=== PATIENT | female | born 1995 | race Caucasian/White ===

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

== ENCOUNTER 2017-02-08 22:05 | Emergency (ER) | payer OTHER ==
[2017-02-08 23:31] LABS: Hematocrit 37 % (35-47); Hemoglobin 12.7 g/dl (12.0-16.0); Mean Corpuscular HGB Conc 34 g/dl (31-36); Mean Corpuscular Hemoglobin 30 pg (27-31); Mean Corpuscular Volume 88 fL (80-97); Mean Platelet Volume 7 um3 (7.4-10.4); Red Blood Count 4.27 10^6/ul (4.0-5.4); Red Cell Distribution Width 13 % (10.5-15); White Blood Count 10.5 10^3/ul (3.5-10.8)
[2017-02-08 23:46] LABS: ALT 15 U/L (7-52); AST 22 U/L (13-39); Albumin 5.1 g/dL (3.2-5.2); Alkaline Phosphatase 49 U/L (34-104); Anion Gap 10 mmol/L (2-11); Blood Urea Nitrogen 13 mg/dL (6-24); CO2 Carbon Dioxide 24 mmol/L (22-32); Calcium 9.4 mg/dL (8.6-10.3); Chloride 104 mmol/L (101-111); EGFR African American 149.4 (>60); EGFR Non-African American 116.2 (>60); Globulin 3.1 g/dL (2-4); Glucose 98 mg/dL (70-100); Potassium 4.3 mmol/L (3.5-5.0); Sodium 138 mmol/L (133-145); Total Protein 8.2 g/dL (6.4-8.9)
[2017-02-08 23:47] LABS: Acetaminophen < 15 mcg/mL; Alcohol 231 mg/dL (<10); Salicylate < 2.50 mg/dL (<30)
[2017-02-08 23:57] LABS: TSH (Thyroid Stimulating Horm) 1.17 mcIU/mL (0.34-5.60)
[2017-02-09 02:22] VITALS: BP 106/64
--- NOTE | 2017-02-09 02:23 | ED ---
Substance Abuse/Use - HPI Summary HPI Summary: Patient presents to the ED with ETOH intoxication. Brought in by friends. She notes to vomiting 6x. She states she had 5-6 mixed drinks, but has drank that much in the past, per patient, without problems. Currently family member at bedside. She states to feeling fine and was in the waiting room for over 2 hours. She is taking PO well and denies nausea. Denies falling, hitting her head or any pain. Denies health problems, lives with friends, takes no medications. - History Of Current Complaint Chief Complaint: EDSubstanceAbuse Stated Complaint: ETOH Time Seen by Provider: 02/09/17 01:05 Hx Obtained From: Patient Hx Last Menstrual Period: 04/11/15 ?: No Onset/Duration of Drug/ETOH Abuse: Hours Ingestion History: Amount Ingested - 6 Overdose Characteristics: Oral Timing Of Abuse: Intermittent Severity Initially: Moderate Severity Currently: Mild Character: Stuporous Aggravating Factor(s): Nothing Alleviating Factor(s): Nothing Associated Signs And Symptoms: Nausea, Vomiting - Risk Factor(s) Completed Suicide Risk Factors: Negative - Allergies/Home Medications Allergies/Adverse Reactions: Allergies Allergy/AdvReac Type Severity Reaction Status Date / Time No Known Allergies Allergy Verified 02/08/17 22:27 PMH/Surg Hx/FS Hx/Imm Hx Previously Healthy: Yes Musculoskeletal History: Denies: Hx Osteoporosis Neurological History: Reports: Other Neuro Impairments/Disorders - T5 COMPRESSION FX IN APR 2013 - Surgical History Surgery Procedure, Year, and Place: Negative - Immunization History Hx Pertussis Vaccination: No Immunizations Up to Date: Unable to Obtain/Confirm Infectious Disease History: No Infectious Disease History: Denies: History Other Infectious Disease, Traveled Outside the [place] in Last 30 Days - Family History Known Family History: Positive: None - Patient denies - Social History Occupation: Unemployed Lives: With Family Alcohol Use: Weekly Alcohol Amount: On the weekends Hx Substance Use: No Substance Use Type: Reports: None Hx Tobacco Use: No Smoking Status (MU): Never Smoked Tobacco Review of Systems Constitutional: Negative Negative: Fever, Chills, Fatigue Eyes: Negative Negative: Blurred Vision, Diplopia, Drainage Cardiovascular: Negative Negative: Chest Pain Respiratory: Negative Negative: Shortness Of Breath, Cough Positive: no symptoms reported, see HPI Negative: Arthralgia, Myalgia Skin: Negative Negative: Headache Psychological: Normal All Other Systems Reviewed And Are Negative: Yes Physical Exam Triage Information Reviewed: Yes Vital Signs On Initial Exam: Initial Vitals Temp Pulse Resp BP Pulse Ox 97.3 F 88 16 111/70 99 02/08/17 22:28 02/08/17 22:28 02/08/17 22:28 02/08/17 22:28 02/08/17 22:28 Vital Signs Reviewed: Yes Appearance: Positive: Well-Appearing, Well-Nourished Skin: Positive: Warm, Skin Color Reflects Adequate Perfusion Head/Face: Positive: Normal Head/Face Inspection Eyes: Positive: EOMI, JOSÉ MANUEL, Conjunctiva Clear Neck: Positive: Supple, Nontender Respiratory/Lung Sounds: Positive: Clear to Auscultation, Breath Sounds Present Cardiovascular: Positive: Normal, RRR, Pulses are Symmetrical in both Upper and Lower Extremities Abdomen Description: Positive: Nontender, Soft Bowel Sounds: Positive: Present Musculoskeletal: Positive: Normal, Strength/ROM Intact Neurological: Positive: Speech Normal Psychiatric: Positive: Normal - Damon Coma Scale Coma Scale Total: 15 Diagnostics - Vital Signs Vital Signs Temp Pulse Resp BP Pulse Ox 02/08/17 22:28 97.3 F 88 16 111/70 99 - Laboratory Lab Results: Lab Results 02/08/17 02/08/17 Range/Units 23:05 23:05 WBC 10.5 (3.5-10.8) 10^3/ul RBC 4.27 (4.0-5.4) 10^6/ul Hgb 12.7 (12.0-16.0) g/dl Hct 37 (35-47) % MCV 88 (80-97) fL MCH 30 (27-31) pg MCHC 34 (31-36) g/dl RDW 13 (10.5-15) % Plt Count 376 (150-450) 10^3/ul MPV 7 L (7.4-10.4) um3 Neut % (Auto) 67.4 (38-83) % Lymph % (Auto) 26.8 (25-47) % Granite % (Auto) 4.5 (1-9) % Eos % (Auto) 0.9 (0-6) % Baso % (Auto) 0.4 (0-2) % Absolute Neuts (auto) 7.1 (1.5-7.7) 10^3/ul Absolute Lymphs (auto) 2.8 (1.0-4.8) 10^3/ul Absolute Monos (auto) 0.5 (0-0.8) 10^3/ul Absolute Eos (auto) 0.1 (0-0.6) 10^3/ul Absolute Basos (auto) 0 (0-0.2) 10^3/ul Absolute Nucleated RBC 0 10^3/ul Nucleated RBC % 0 Sodium 138 (133-145) mmol/L Potassium 4.3 (3.5-5.0) mmol/L Chloride 104 (101-111) mmol/L Carbon Dioxide 24 (22-32) mmol/L Anion Gap 10 (2-11) mmol/L BUN 13 (6-24) mg/dL Creatinine 0.65 (0.51-0.95) mg/dL Est GFR ( Amer) 149.4 (>60) Est GFR (Non-Af Amer) 116.2 (>60) BUN/Creatinine Ratio 20.0 (8-20) Glucose 98 (70-100) mg/dL Calcium 9.4 (8.6-10.3) mg/dL Total Bilirubin 0.30 (0.2-1.0) mg/dL AST 22 (13-39) U/L ALT 15 (7-52) U/L Alkaline Phosphatase 49 (34-104) U/L Total Protein 8.2 (6.4-8.9) g/dL Albumin 5.1 (3.2-5.2) g/dL Globulin 3.1 (2-4) g/dL Albumin/Globulin Ratio 1.6 (1-3) TSH 1.17 (0.34-5.60) mcIU/mL Salicylates < 2.50 (<30) mg/dL Acetaminophen < 15 mcg/mL Serum Alcohol 231 H (<10) mg/dL Result Diagrams: 02/08/17 23:05 02/08/17 23:05 Lab Statement: Any lab studies that have been ordered have been reviewed, and results considered in the medical decision making process. Course/Dx - Course Course Of Treatment: She notes to vomiting 6x. She states she had 5-6 mixed drinks, but has drank that much in the past, per patient, without problems. Currently family member at bedside. She states to feeling fine and was in the waiting room for over 2 hours. She is taking PO well and denies nausea. Denies falling, hitting her head or any pain. Denies health problems, lives with friends, takes no medications. Patient evaluated for ETOH intox. PE benign. She is OK for discharge and has family to help her home. - Diagnoses Differential Diagnosis/HQI/PQRI: Positive: Alcohol Abuse, Alcohol Withdrawal Provider Diagnoses: Alcohol intoxication Discharge - Discharge Plan Condition: Stable Disposition: HOME Patient Education Materials: Alcohol Intoxication (ED) Referrals: [facility] [Primary Care Provider] -
== END 2017-02-09 02:02 | disposition home or self-care (01) ==
LOC: ED 22:05
DX: F10.129 Alcohol abuse with intoxication, unspecified (principal); Y90.7 Blood alcohol level of 200-239 mg/100 ml
CPT/HCPCS: 36415; 80053; 80320; 80329; 84443; 85025; 99282; G0480